=== PATIENT | female | born 1935 | race Caucasian/White ===

== ENCOUNTER 2017-01-07 18:44 | Emergency (ER) | payer OTHER, MEDICARE ==
[~2017-01-07] VITALS: Ht 149.9 cm; Wt 58.5 kg
[2017-01-07 19:00] VITALS: BP_SYST 147
[2017-01-07] MEDS ORDERED: KETOROLAC TROMETHAMINE 60 MG/2 ML VIAL IM ONE (21:45)
[2017-01-07] MEDS ORDERED: MORPHINE 4 MG/ML INJ. SYRINGE IM ONE (21:45)
[2017-01-08 00:11] VITALS: BP_SYST 136
== END 2017-01-08 00:11 | disposition home or self-care (01) ==
LOC: SED 18:44
DX: M43.6 Torticollis (principal)
CPT/HCPCS: 96372; 99284; J1885; J2270